=== PATIENT | male | born 1990 | race African-American/Black ===

== ENCOUNTER 2017-05-14 17:22 | Emergency (ER) | payer MEDICARE, MEDICAID, OTHER ==
[2017-05-14] MEDS ORDERED: HYDROcodone/Acetaminophen 10/325 mg Tablet ONE (18:36)
[2017-05-14] MEDS ORDERED: Ibuprofen 200 MG TAB ONE (18:37)
[2017-05-14] MEDS ORDERED: Bacitracin Zinc 1 Packet ONE (18:37)
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
== END 2017-05-14 20:12 | disposition home or self-care (01) ==
LOC: ERS 17:22
DX: S20.211A Contusion of right front wall of thorax, initial encounter (principal); S50.812A Abrasion of left forearm, initial encounter; I10 Essential (primary) hypertension; V43.63XA Car passenger injured in collision with pick-up truck in traffic accident, initial encounter

== ENCOUNTER 2017-06-13 19:23 | Emergency (ER) | payer MEDICARE, MEDICAID, OTHER ==
[2017-06-13] MEDS ORDERED: HYDROcodone/Acetaminophen 10/325 mg Tablet ONE (23:07)
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
[2017-06-13 23:11] LABS: ALT (SGPT) 26 U/L (8-55); AST (SGOT) 22 U/L (5-34); Albumin 4.7 g/dL (3.5-5.0); Alkaline Phosphatase 87 U/L (40-150); Anion Gap 14 mmol/L (10-20); BUN (Urea Nitrogen) 13 mg/dL (8.9-20.6); Bilirubin, Total 1.8 mg/dL (0.2-1.2); CRP (Inflammatory) Less than 0.50 mg/dL (= or < 0.5); Calc. Creatinine Clearance 0 mL/min (70-130); Calcium 10.1 mg/dL (7.8-10.44); Carbon Dioxide 26 mmol/L (22-29); Chloride 104 mmol/L (98-107); Estimated GFR-MDRD 86; Globulin 3.5 g/dL (2.4-3.5); Glucose 105 mg/dL (70-105); Potassium 3.7 mmol/L (3.5-5.1); Protein, Total 8.2 g/dL (6.0-8.3); Sodium 140 mmol/L (136-145)
[2017-06-13 23:15] LABS: Band 1 % (5-11); Eosinophils 1 % (0-10); Hemoglobin 16.8 g/dL (14.0-18.0); Lymphocytes 51 % (21-51); MDiff Complete? YES; Mean Corpuscular HGB CONC 34.6 g/dL (32.0-36.0); Mean Corpuscular Hemoglobin 30.3 pg (27.0-31.0); Mean Corpuscular Volume 87.7 fl (80.0-94.0); Mean Platelet Volume 7.8 fL (7.4-10.4); Metamyelocyte 1 % (0-0); Monocytes 7 % (0-10); Neutrophil 32 % (42-75); Nucleated RBC 2 % (0); PLT Morphology Comment Appears Adequate; Platelet Count 247 thou/uL (130-400); RBC Distribution Width 11.7 % (11.5-14.5); RBC Morphology Normal; Reactive Lymphocytes 7 % (0-10); Red Blood Cell (RBC) Count 5.53 mill/uL (4.70-6.10); White Blood Cell (WBC) Count 5.9 thou/uL (4.8-10.8)
== END 2017-06-14 01:05 | disposition home or self-care (01) ==
LOC: ERS 19:23
DX: H60.92 Unspecified otitis externa, left ear (principal); R51 Headache; I10 Essential (primary) hypertension
CPT/HCPCS: 36415; 70486; 80053; 85025; 85652; 86140

== ENCOUNTER 2017-06-14 12:16 | Emergency (ER) | payer MEDICARE, MEDICAID ==
[2017-06-14 13:30] LABS: #Basophils 0.1 thou/uL (0.0-0.2); #Lymphocytes 2.2 thou/uL (1.20-3.40); #Monocytes 0.5 thou/uL (0.11-0.59); #Neutrophils 1.7 thou/uL (1.40-6.50); %Basophils 1.7 % (0.0-1.0); %Eosinophils 0.9 % (0.0-10.0); %Lymphocytes 48.6 % (21.0-51.0); %Monocytes 10.7 % (0.0-10.0); %Neutrophils 38.1 % (42.0-75.0); Hemoglobin 16.7 g/dL (14.0-18.0); Mean Corpuscular HGB CONC 33.8 g/dL (32.0-36.0); Mean Corpuscular Hemoglobin 29.8 pg (27.0-31.0); Mean Corpuscular Volume 88.3 fl (80.0-94.0); Mean Platelet Volume 7.4 fL (7.4-10.4); Platelet Count 249 thou/uL (130-400); RBC Distribution Width 11.7 % (11.5-14.5); Red Blood Cell (RBC) Count 5.61 mill/uL (4.70-6.10); White Blood Cell (WBC) Count 4.5 thou/uL (4.8-10.8)
[2017-06-14 13:52] LABS: ALT (SGPT) 24 U/L (8-55); AST (SGOT) 20 U/L (5-34); Albumin 4.8 g/dL (3.5-5.0); Alkaline Phosphatase 83 U/L (40-150); Anion Gap 13 mmol/L (10-20); BUN (Urea Nitrogen) 11 mg/dL (8.9-20.6); Bilirubin, Total 1.9 mg/dL (0.2-1.2); Calc. Creatinine Clearance 0 mL/min (70-130); Calcium 10.3 mg/dL (7.8-10.44); Carbon Dioxide 28 mmol/L (22-29); Chloride 101 mmol/L (98-107); Estimated GFR-MDRD 86; Globulin 3.3 g/dL (2.4-3.5); Glucose 89 mg/dL (70-105); Lipase 26 U/L (8-78); Potassium 4.5 mmol/L (3.5-5.1); Protein, Total 8.1 g/dL (6.0-8.3); Sodium 137 mmol/L (136-145)
[2017-06-14 13:58] LABS: Bilirubin Small (Negative); Blood, Urine Negative (Negative); Clarity CLEAR (Clear); Glucose, Urine (Dipstick) Negative (Negative); Leukocyte Negative (Negative); Nitrite Negative (Negative); Protein, Urine (Dipstick) 30 mg/dL (Neg-Trace); Specific Gravity, Urine 1.033 (1.002-1.036)
[2017-06-14 14:00] LABS: Bacteria/HPF None Seen HPF (None Seen); Hyaline Casts/LPF 4-6 HYALINE CAST LPF (0-3 Hyaline); Pathc Cast-AUWi Flag 0.43 (0-2.49); RBC/HPF 0-3 HPF (0-3); Squamous Epithelial 0-3 HPF (0-3); WBC/HPF 0-3 HPF (0-3)
== END 2017-06-14 14:00 | disposition home or self-care (01) ==
LOC: ERS 12:16
DX: K29.70 Gastritis, unspecified, without bleeding (principal); I10 Essential (primary) hypertension
CPT/HCPCS: 36415; 80053; 81003; 81015; 83690; 85025; 99284

== ENCOUNTER 2017-07-19 00:03 | Emergency (ER) | payer MEDICARE, MEDICAID ==
[2017-07-19] MEDS ORDERED: Ondansetron ODT 4 MG TAB ONE (00:33)
[2017-07-19] MEDS ORDERED: Famotidine 20 MG TAB PO SCH (00:45)
[2017-07-19] MEDS ORDERED: Mag-Al 1200 mg/1200 mg/30 ML UDCUP ONE (00:54)
[2017-07-19] MEDS ORDERED: Lidocaine Viscous Sol 2% 15 ml UD Cup ONE (00:54)
== END 2017-07-19 01:26 | disposition home or self-care (01) ==
LOC: ERS 00:03
DX: R10.33 Periumbilical pain (principal); I10 Essential (primary) hypertension
CPT/HCPCS: 93005; Q0162

== ENCOUNTER 2017-07-22 01:18 | Emergency (ER) | payer MEDICARE, MEDICAID ==
[2017-07-22 01:48] LABS: #Basophils 0.1 thou/uL (0.0-0.2); #Eosinphils 0.1 thou/uL (0.0-0.7); #Lymphocytes 1.8 thou/uL (1.20-3.40); #Monocytes 0.7 thou/uL (0.11-0.59); %Eosinophils 1.1 % (0.0-10.0); %Lymphocytes 18.1 % (21.0-51.0); %Monocytes 7.4 % (0.0-10.0); %Neutrophils 72.4 % (42.0-75.0); Hemoglobin 15.3 g/dL (14.0-18.0); Mean Corpuscular HGB CONC 35.9 g/dL (32.0-36.0); Mean Corpuscular Hemoglobin 31.4 pg (27.0-31.0); Mean Corpuscular Volume 87.4 fl (80.0-94.0); Mean Platelet Volume 7.9 fL (7.4-10.4); Platelet Count 214 thou/uL (130-400); RBC Distribution Width 11.9 % (11.5-14.5); Red Blood Cell (RBC) Count 4.88 mill/uL (4.70-6.10); White Blood Cell (WBC) Count 9.7 thou/uL (4.8-10.8)
[2017-07-22 02:02] LABS: ALT (SGPT) 45 U/L (8-55); AST (SGOT) 27 U/L (5-34); Albumin 4.6 g/dL (3.5-5.0); Alkaline Phosphatase 97 U/L (40-150); Anion Gap 15 mmol/L (10-20); BUN (Urea Nitrogen) 11 mg/dL (8.9-20.6); Bilirubin, Total 1.9 mg/dL (0.2-1.2); Calc. Creatinine Clearance 0 mL/min (70-130); Carbon Dioxide 22 mmol/L (22-29); Chloride 105 mmol/L (98-107); Estimated GFR-MDRD Greater than 90; Globulin 3.3 g/dL (2.4-3.5); Glucose 114 mg/dL (70-105); Potassium 3.7 mmol/L (3.5-5.1); Protein, Total 7.9 g/dL (6.0-8.3); Sodium 138 mmol/L (136-145)
[2017-07-22] MEDS ORDERED: Ondansetron ODT 8 MG TAB ONE (04:04)
[2017-07-22] MEDS ORDERED: Morphine 4 MG/ML VIAL ONE (05:08)
[2017-07-22 07:21] LABS: Bilirubin Negative (Negative); Blood, Urine Negative (Negative); Clarity CLEAR (Clear); Glucose, Urine (Dipstick) Negative (Negative); Leukocyte Negative (Negative); Nitrite Negative (Negative); Protein, Urine (Dipstick) Negative (Neg-Trace); Urobilinogen 0.2 mg/dL (0.2-1.0)
[2017-07-22 07:55] LABS: Specific Gravity, Urine 1.046 (1.002-1.036)
[2017-07-22] MEDS ORDERED: ISOVUE-370 76%-LOCM 1 ML ONE (15:29)
--- NOTE | 2017-07-22 18:24 | CT ---
PRELIMINARY REPORT/[facility]/EMERGENTY AFTER-HOURS PROCEDURE CT Abdomen and Pelvis With Intravenous Contrast CLINICAL HISTORY: 27 years old, male; Signs and symptoms; Vomiting; Patient HX: Dx with gastritis several days ago; Vom iting all this evening with shakes and chills. TECHNIQUE: Axial computed tomography images of the abdomen and pelvis with intravenous contrast. Coronal reforma tted images were created and reviewed. CONTRAST: 100 mL of ISO 370 administered intravenously. COMPARISON: No relevant prior studies available. FINDINGS: Lung bases: Unremarkable. No mass. No consolidation. ABDOMEN: Liver: Unremarkable. Gallbladder and bile ducts: Unremarkable. No calcified stones. No ductal dilation. Pancreas: Unremarkable. Spleen: Unremarkable. Adrenals: Unremarkable. Kidneys and ureters: Unremarkable. Stomach and bowel: There is fluid in the colon. There may be mild mucosal fold thickening in the colo n. PELVIS: Appendix: The appendix is unremarkable. Bladder: Unremarkable. No mass. Reproductive: Unremarkable as visualized. ABDOMEN and PELVIS: Intraperitoneal space: No free fluid. No free air. Bones/joints: No acute fracture. No dislocation. Soft tissues: Unremarkable. Vasculature: Unremarkable. No abdominal aortic aneurysm. Lymph nodes: Small mesenteric lymph nodes may be reactive. IMPRESSION: Possible colitis. Thank you for allowing us to participate in the care of your patient. Dictated and Authenticated by: Nikolas Peterson MD 07/22/2017 6:02 AM Central Time ([place] & [place]) FINAL REPORT EMERGENT AFTER HOURS CT OF THE ABDOMEN AND PELVIS: IMPRESSION: Agree with the preliminary interpretation given by [facility] that there is fluid density present within the colon that may reflect a diarrheal illness. No overt mural thickening is evident. POS: [facility]
== END 2017-07-22 08:03 | disposition home or self-care (01) ==
LOC: ERS 01:18
DX: K52.9 Noninfective gastroenteritis and colitis, unspecified (principal); I10 Essential (primary) hypertension; A64 Unspecified sexually transmitted disease; Z86.19 Personal history of other infectious and parasitic diseases
CPT/HCPCS: 36415; 74177; 80053; 81003; 82150; 83690; 85025; 96374; J2270

== ENCOUNTER 2017-09-06 19:52 | Emergency (ER) | payer MEDICARE, OTHER | END 2017-09-06 20:56 | disposition home or self-care (01) | LOC: ERS 19:52 | DX: F41.9 Anxiety disorder, unspecified (principal); I10 Essential (primary) hypertension | CPT/HCPCS: 93005 ==

== ENCOUNTER 2017-12-28 09:23 | Emergency (ER) | payer MEDICARE, MEDICAID ==
[2017-12-28] MEDS ORDERED: Ondansetron HCl/PF 4 MG/2 ML Vial ONE (10:32)
[2017-12-28 10:33] LABS: Hemoglobin 17.2 g/dL (14.0-18.0); Mean Corpuscular HGB CONC 32.5 g/dL (32.0-36.0); Mean Corpuscular Hemoglobin 30.4 pg (27.0-31.0); Mean Corpuscular Volume 93.5 fL (78.0-98.0); Mean Platelet Volume 8.7 fL (7.4-10.4); Platelet Count 244 thou/uL (130-400); RBC Distribution Width 12.1 % (11.5-14.5); Red Blood Cell (RBC) Count 5.65 mill/uL (4.70-6.10)
[2017-12-28 10:51] LABS: #Lymphocytes 0.8 thou/uL (1.20-3.40); #Monocytes 0.3 thou/uL (0.11-0.59); #Neutrophils 7.7 thou/uL (1.40-6.50); %Basophils 0.5 % (0.0-1.0); %Eosinophils 0.1 % (0.0-10.0); %Lymphocytes 9.6 % (21.0-51.0); %Monocytes 2.9 % (0.0-10.0); %Neutrophils 86.9 % (42.0-75.0); Eosinophils 1 % (0-10); Lymphocytes 8 % (21-51); MDiff Complete? YES; Monocytes 4 % (0-10); Neutrophil 87 % (42-75); White Blood Cell (WBC) Count 8.8 thou/uL (4.8-10.8)
[2017-12-28 10:52] LABS: ALT (SGPT) 61 U/L (8-55); AST (SGOT) 40 U/L (5-34); Alkaline Phosphatase 80 U/L (40-150); Anion Gap 17 mmol/L (10-20); BUN (Urea Nitrogen) 8 mg/dL (8.9-20.6); Bilirubin, Total 1.8 mg/dL (0.2-1.2); Calc. Creatinine Clearance 0 mL/min (70-130); Calcium 10.4 mg/dL (7.8-10.44); Carbon Dioxide 22 mmol/L (22-29); Chloride 105 mmol/L (98-107); Estimated GFR-MDRD Greater than 90; Globulin 3.3 g/dL (2.4-3.5); Glucose 109 mg/dL (70-105); Lipase 28 U/L (8-78); Potassium 4.2 mmol/L (3.5-5.1); Protein, Total 8.3 g/dL (6.0-8.3); Sodium 140 mmol/L (136-145)
[2017-12-28] MEDS ORDERED: Morphine 2 MG/ML SYRINGE ONE (11:08)
[2017-12-28] MEDS ORDERED: Ketorolac Tromethamine 30 MG/ML VIAL ONE (11:08)
--- NOTE | 2017-12-28 11:44 | CT ---
CT ABDOMEN AND PELVIS WITHOUT CONTRAST: Date: 12/28/17 HISTORY: Left flank pain. FINDINGS: Absence of oral and IV contrast reduces the sensitivity of exam, particularly for evaluation of solid organs and bowel. The lung bases are clear. No free air or free fluid is seen in the abdomen or pelvis. No calculi are noted in the kidneys, ureters, or the urinary bladder. No hydroureteronephrosis is seen on either layo e. No calcified gallstones are seen. The appendix appears normal. There is fecal material in the rect osigmoid. IMPRESSION: No CT evidence of urinary tract calculi or obstruction. POS: [facility]
[2017-12-28 12:14] LABS: Bilirubin Negative (Negative); Blood, Urine Negative (Negative); Clarity CLEAR (Clear); Glucose, Urine (Dipstick) Negative (Negative); Leukocyte Negative (Negative); Nitrite Negative (Negative); Protein, Urine (Dipstick) Trace mg/dL (Neg-Trace); Specific Gravity, Urine 1.021 (1.002-1.036); Urobilinogen 0.2 mg/dL (0.2-1.0); pH, Urine 8.5 (5.0-9.0)
== END 2017-12-28 12:51 | disposition home or self-care (01) ==
LOC: ERS 09:23
DX: E86.0 Dehydration (principal); R10.9 Unspecified abdominal pain; R11.10 Vomiting, unspecified; F41.9 Anxiety disorder, unspecified; I10 Essential (primary) hypertension
CPT/HCPCS: 74176; 80053; 81003; 83690; 85025; 96361; 96374; 96375; J1885; J2270; J2405

== ENCOUNTER 2018-05-11 07:09 | Emergency (ER) | payer MEDICARE, MEDICAID | END 2018-05-11 07:56 | disposition home or self-care (01) | LOC: ERS 07:09 | DX: M62.838 Other muscle spasm (principal); I10 Essential (primary) hypertension; F41.9 Anxiety disorder, unspecified | CPT/HCPCS: 99283 ==

== ENCOUNTER 2018-07-31 20:44 | Emergency (ER) | payer MEDICARE, MEDICAID | END 2018-07-31 22:46 | disposition home or self-care (01) | LOC: ERS 20:44 | DX: H61.23 Impacted cerumen, bilateral (principal); I10 Essential (primary) hypertension; F41.9 Anxiety disorder, unspecified | CPT/HCPCS: 69209 ==

== ENCOUNTER 2019-02-18 16:57 | Emergency (ER) | payer MEDICARE, MEDICAID ==
--- NOTE | 2019-02-18 17:34 | RAD ---
PA AND LATERAL VIEWS OF THE CHEST: 02/18/19 HISTORY: Cough, wheezing. FINDINGS: Comparison made with exam of 06/26/08. The cardiomediastinum is normal. The lungs are expanded and clear. The bony thorax is normal. IMPRESSION: Normal exam. POS: [facility]
== END 2019-02-18 18:17 | disposition home or self-care (01) ==
LOC: ERS 16:57
DX: J30.9 Allergic rhinitis, unspecified (principal); I10 Essential (primary) hypertension; F41.9 Anxiety disorder, unspecified
CPT/HCPCS: 71046

== ENCOUNTER 2019-04-29 11:37 | Emergency (ER) | payer MEDICARE, OTHER | END 2019-04-29 12:31 | disposition home or self-care (01) | LOC: ERS 11:37 | DX: R05 Cough (principal); I10 Essential (primary) hypertension; F41.9 Anxiety disorder, unspecified; Z79.899 Other long term (current) drug therapy | CPT/HCPCS: 99281 ==

== ENCOUNTER 2020-02-11 13:32 | Emergency (ER) | payer MEDICARE, MEDICAID | END 2020-02-11 14:40 | disposition home or self-care (01) | LOC: ERS 13:32 | DX: R20.2 Paresthesia of skin (principal); I10 Essential (primary) hypertension; F41.9 Anxiety disorder, unspecified; Z79.899 Other long term (current) drug therapy | CPT/HCPCS: 99281 ==

== ENCOUNTER 2021-03-02 06:10 | Emergency (ER) | payer MEDICARE, MEDICAID | END 2021-03-02 06:15 | disposition left against medical advice (07) | LOC: ERS 06:10 | DX: Z53.21 Procedure and treatment not carried out due to patient leaving prior to being seen by health care provider (principal) ==